=== PATIENT | male | born 1960 ===

== ENCOUNTER → 2021-07-06 | Outpatient (CLI) | payer SELFPAY ==
[2021-07-07 12:46] LABS: Stool Occult Bld Immuno 1 Negative (NEGATIVE)
== END | disposition home or self-care (01) ==
LOC: LAB SHORT 12:40
PROVIDERS: Family Medicine
DX: Z12.11 Encounter for screening for malignant neoplasm of colon (principal); Z12.12 Encounter for screening for malignant neoplasm of rectum
CPT/HCPCS: 82274